=== PATIENT | female | born 1965 | race Caucasian/White ===

== ENCOUNTER → 2016-09-01 | Outpatient (REF) | payer BC ==
[2016-09-01 12:05] LABS: ALBUMIN 3.4 GM/DL (3.2-5.2); ALBUMIN/GLOBULIN RATIO 1.06 (1.00-1.93); ALKALINE PHOSPHATASE 129 U/L (45-117); ALT/SGPT 27 U/L (12-78); AMYLASE 51 U/L (25-115); ANION GAP 6 MEQ/L (8-16); AST/SGOT 18 U/L (15-37); BILIRUBIN,TOTAL 0.5 MG/DL (0.2-1.0); BLOOD UREA NITROGEN 16 MG/DL (7-18); CALCIUM LEVEL 8.5 MG/DL (8.5-10.1); CARBON DIOXIDE LEVEL 31 MEQ/L (21-32); CHLORIDE LEVEL 104 MEQ/L (98-107); CREATININE FOR GFR 0.55 MG/DL (0.55-1.02); GLOMERULAR FILTRATION RATE > 60.0 (>51); GLUCOSE, FASTING 98 MG/DL (70-105); POTASSIUM SERUM 4.1 MEQ/L (3.5-5.1); SODIUM LEVEL 141 MEQ/L (136-145); TOTAL PROTEIN 6.6 GM/DL (6.4-8.2)
[2016-09-02 14:16] LABS: TISSUE TRANSGLUTAMINASE IgG <2 U/mL (0-5)
== END ==
LOC: M LAB REF 11:21
PROVIDERS: ATTEND Family Medicine
DX: R14.0 Abdominal distension (gaseous) (principal); R10.13 Epigastric pain; K59.00 Constipation, unspecified; R19.7 Diarrhea, unspecified

== ENCOUNTER → 2016-09-10 | Outpatient (REF) | payer BC ==
[2016-09-13 14:16] LABS: TOTAL ALK PHOS 120 IU/L (39-117)
== END ==
LOC: M LABDRAWC 11:18
PROVIDERS: ATTEND Family Medicine
DX: R53.83 Other fatigue (principal); R94.5 Abnormal results of liver function studies; E55.9 Vitamin D deficiency, unspecified

== ENCOUNTER → 2016-09-16 | Outpatient (CLI) | payer BC ==
--- NOTE | 2016-09-16 14:21 | REP ---
Clinical: Postmenopausal bleeding. Comparison: 09/18/2009. . Technique: Transabdominal pelvic ultrasound followed by transvaginal examination for better evaluation of the endometrium and adnexa with color Doppler evaluation of the ovaries. Findings: Bladder is unremarkable and measures 9.2 x 5.8 x 9.5 cm . Normal heterogeneous anteverted uterus measures 7.9 x 3.8 x 4.9 cm. The endometrial complex measures 5 mm thickness. 5 mm echogenic focus anterior to the endometrium is essentially unchanged compared to 2010 and relatively insignificant/nonspecific. Right ovary is not visualized. Left ovary measures 3.8 x 3.2 x 4.3 cm and includes 3.2 cm simple cyst which is relatively new when compared to 2010 No pelvic fluid or adnexal mass lesion. . Impression: 1. Heterogeneous anteverted uterus without significant abnormality. 2. 3.2 cm simple left ovarian cyst represents a relatively new finding when compared to 2010. Consider follow-up examination
== END ==
LOC: M WHC 11:29
PROVIDERS: ATTEND Nurse Practitioner Family
DX: N83.202 Unspecified ovarian cyst, left side (principal); N85.4 Malposition of uterus

== ENCOUNTER → 2016-09-17 | Outpatient (REF) | payer BC | LOC: M SFHCWAGY 13:53 | PROVIDERS: ATTEND Family Medicine | DX: N95.0 Postmenopausal bleeding (principal); D26.9 Other benign neoplasm of uterus, unspecified ==

== ENCOUNTER → 2016-10-21 | Outpatient (CLI) | payer BC ==
--- NOTE | 2016-10-22 08:36 | REP ---
Clinical: Follow-up left ovarian cyst. Comparison: 09/16/2016. . Technique: Transabdominal pelvic ultrasound followed by transvaginal examination for better evaluation of the endometrium and adnexa. Findings: Bladder is unremarkable and measures 9.0 x 7.5 x 5.2 cm . Normal anteverted uterus measures 8.1 x 3.4 x 5.1 cm. The endometrial complex measures 4.5 mm thickness. No discrete uterine or endometrial abnormalities are appreciated. Incidental subcentimeter Nabothian cysts noted. Right ovary not visualized. Left ovary measures 3.6 x 1.9 x 3.0 cm with 2.3 x 1.8 x 2.4 cm simple cyst decreased in size from prior examination. No pelvic fluid or adnexal mass lesion. Impression: 1. Normal uterus. Nabothian cysts noted. 2. Right ovary not visualized. Left ovary contains 2.4 cm simple cyst mildly decreased from prior examination. Signed by Dale West MD 10/22/2016 08:28 A
== END ==
LOC: M WHC 08:32
PROVIDERS: ATTEND Nurse Practitioner Family
DX: N88.8 Other specified noninflammatory disorders of cervix uteri (principal); N83.291 Other ovarian cyst, right side

== ENCOUNTER → 2016-10-29 | Outpatient (REF) | payer BC ==
[~2016-10-29] MED LIST: OMEP10CASR PO
== END ==
LOC: M SFHCWAGY 14:03
PROVIDERS: ATTEND Family Medicine
DX: Z12.4 Encounter for screening for malignant neoplasm of cervix (principal)

== ENCOUNTER → 2016-10-29 | Outpatient (CLI) | payer BC ==
--- NOTE | 2016-10-29 16:41 | REPMRS ---
Patient History The patient states she had a clinical breast exam in Patient is postmenopausal and had first child at age 34. Family history of ovarian cancer in maternal aunt at age 50 or over. Digital Woman Screen Mammo: October 29, 2016 - Exam #: [id number] Bilateral CC and MLO view(s) were taken. Technologist: Mell Crowe, Technologist Prior study comparison: July 11, 2015, digital woman screen mammo performed at [facility]. July 03, 2014, digital woman screen mammo performed at [facility]. FINDINGS: There are scattered fibroglandular densities. There is a moderate amount of residual fibroglandular tissue which is fairly symmetric. There is no interval development of dominant mass, architectural distortion, or clustered microcalcification typical of malignancy. There has been no change in the appearance of the mammogram from the prior studies. ASSESSMENT: BI-RADS/ACR category 1 mammogram. Negative. Recommendation Routine screening mammogram of both breasts in 1 year (for women over age 40). This mammogram was interpreted with the aid of an FDA-approved computer-aided dectection system. Electronically Signed By: Vinicio Trinidad MD 10/29/16 [id number]
== END ==
LOC: M WHC 14:02
PROVIDERS: ATTEND Family Medicine
DX: Z12.31 Encounter for screening mammogram for malignant neoplasm of breast (principal)

== ENCOUNTER → 2016-12-16 | Outpatient (REF) | payer BC | LOC: M LABDRAWC 12:36 | PROVIDERS: ATTEND Physician Assistant | DX: Z02.0 Encounter for examination for admission to educational institution (principal) ==

== ENCOUNTER → 2017-02-02 | Outpatient (CLI) | payer BC ==
[~2017-02-02] VITALS: Ht 165.1 cm; Wt 89.8 kg
[~2017-02-02] MED LIST changes: +LIDOCAINE 2% INJ 100 MG/5 ML SDV (FOR ANES.) As Ordered ONE; +NS 1,000 ML IV ONE; +PROPOFOL 200 MG/20 ML VIAL As Ordered ONE
--- NOTE | 2017-02-02 11:14 | ROOR ---
Patient Name: Merissa Hernandez Procedure Date: 02/02/2017 10:57 AM Date of : 1965 Age: 51 Room: [facility] Gender: Female Note Status: Finalized Procedure: Upper Endoscopy + Biopsies Indications: Heartburn Providers: Kyle Morris MD Referring MD: Heidi LEVY DO Requesting Provider: Medicines: Monitored Anesthesia Care Complications: No immediate complications. Procedure: Pre-Anesthesia Assessment: - The heart rate, respiratory rate, oxygen saturations, blood pressure, adequacy of pulmonary ventilation, and response to care were monitored throughout the procedure. The Endoscope was introduced through the mouth, and advanced to the second part of duodenum. The upper GI endoscopy was accomplished without difficulty. The patient tolerated the procedure well. Findings: The Z-line was regular and was found 33 cm from the incisors. Multiple biopsies were obtained with cold forceps for evaluation to rule out Clark's Esophagus randomly at the gastroesophageal junction. Non-severe esophagitis with no bleeding was found 33 cm from the incisors. A medium-sized hiatal hernia was present. No other significant abnormalities were identified in a careful examination of the stomach. The exam of the duodenum was otherwise normal. Impression: - Z-line regular, 33 cm from the incisors. - Non-severe reflux esophagitis. - Medium-sized hiatal hernia. - Multiple biopsies were obtained at the gastroesophageal junction. - The examination was otherwise normal. Recommendation: - Patient has a contact number available for emergencies. The signs and symptoms of potential delayed complications were discussed with the patient. Return to normal activities tomorrow. Written discharge instructions were provided to the patient. - High fiber diet. - Discharge patient to home. - Continue present medications. - Await pathology results. - Check Portal Online for Path Results.([email or web address]) - Telephone GI clinic for pathology results in 1 week. - Return to referring physician. - The findings and recommendations were discussed with the patient's family. Kyle Morris MD Kyle Morris MD 02/02/2017 11:13:58 AM This report has been signed electronically. Number of Addenda: 0 Note Initiated On: 02/02/2017 10:57 AM Estimated Blood Loss: Estimated blood loss: none.
--- NOTE | 2017-02-02 11:28 | ROOR ---
Patient Name: Merissa Hernandez Procedure Date: 02/02/2017 10:59 AM Date of : 1965 Age: 51 Room: [facility] Gender: Female Note Status: Finalized Procedure: Total Colonoscopy to cecum + Biopsy Polypectomy Indications: Screening for colorectal malignant neoplasm Providers: Kyle Morris MD Referring MD: Heidi LEVY DO Requesting Provider: Medicines: Monitored Anesthesia Care Complications: No immediate complications. Procedure: Pre-Anesthesia Assessment: - The heart rate, respiratory rate, oxygen saturations, blood pressure, adequacy of pulmonary ventilation, and response to care were monitored throughout the procedure. The Colonoscope was introduced through the anus and advanced to the cecum, identified by appendiceal orifice and ileocecal valve. The colonoscopy was performed without difficulty. The patient tolerated the procedure well. The quality of the bowel preparation was excellent. Findings: The perianal and digital rectal examinations were normal. Non-bleeding internal hemorrhoids were found during retroflexion. The hemorrhoids were small and Grade I (internal hemorrhoids that do not prolapse). A small polyp was found in the cecum. The polyp was sessile. The polyp was removed with a jumbo cold forceps. Resection and retrieval were complete. Scattered small-mouthed diverticula were found in the recto-sigmoid colon, sigmoid colon and descending colon. The exam was otherwise without abnormality on direct and retroflexion views. Impression: - Non-bleeding internal hemorrhoids. - One small polyp in the cecum, removed with a jumbo cold forceps. Resected and retrieved. - Diverticulosis in the recto-sigmoid colon, in the sigmoid colon and in the descending colon. - The examination was otherwise normal on direct and retroflexion views. - The exam was otherwise normal to the cecum. Recommendation: - Patient has a contact number available for emergencies. The signs and symptoms of potential delayed complications were discussed with the patient. Return to normal activities tomorrow. Written discharge instructions were provided to the patient. - High fiber diet. - Discharge patient to home. - Continue present medications. - Await pathology results. - Telephone GI clinic for pathology results in 1 week. - Repeat colonoscopy at appointment to be scheduled for surveillance based on pathology results. - Return to referring physician. - Check Portal Online for Path Results.([email or web address] - The findings and recommendations were discussed with the patient's family. Kyle Morris MD Kyle Morris MD 02/02/2017 11:28:22 AM This report has been signed electronically. Number of Addenda: 0 Note Initiated On: 02/02/2017 10:59 AM Estimated Blood Loss: Estimated blood loss: none.
[2017-02-02 11:45] VITALS: BP 133/79
== END ==
LOC: M OPP 09:50
PROVIDERS: ATTEND Internal Medicine Gastroenterology
DX: Z12.11 Encounter for screening for malignant neoplasm of colon (principal); D12.0 Benign neoplasm of cecum; K57.30 Diverticulosis of large intestine without perforation or abscess without bleeding; K64.0 First degree hemorrhoids; R12 Heartburn; K21.0 Gastro-esophageal reflux disease with esophagitis; K44.9 Diaphragmatic hernia without obstruction or gangrene; E78.5 Hyperlipidemia, unspecified; R23.3 Spontaneous ecchymoses; F32.9 Major depressive disorder, single episode, unspecified; Z80.9 Family history of malignant neoplasm, unspecified; Z78.0 Asymptomatic menopausal state; L80 Vitiligo; Z79.899 Other long term (current) drug therapy

== ENCOUNTER → 2017-09-01 | Outpatient (REF) | payer BC ==
[2017-09-01 11:32] LABS: HEMATOCRIT 40.4 % (36.0-47.0); HEMOGLOBIN 13.3 g/dl (12.0-15.5); MEAN CORPUSCULAR HEMOGLOBIN 30.6 pg (27.0-33.0); MEAN CORPUSCULAR HGB CONC 32.9 g/dl (32.0-36.5); MEAN CORPUSCULAR VOLUME 92.9 fl (80.0-96.0); PLATELET COUNT, AUTOMATED 362 10^3/uL (150-450); RED BLOOD COUNT 4.35 10^6/uL (4.00-5.40); RED CELL DISTRIBUTION WIDTH 12.6 % (11.5-14.5); WHITE BLOOD COUNT 4.7 10^3/uL (4.0-10.0)
[2017-09-01 11:59] LABS: TOTAL 25(OH) VITAMIN D 24.6 NG/ML (30.0-100.0)
[2017-09-01 12:08] LABS: ALBUMIN 3.6 GM/DL (3.2-5.2); ALBUMIN/GLOBULIN RATIO 1.06 (1.00-1.93); ALKALINE PHOSPHATASE 111 U/L (45-117); ALT/SGPT 23 U/L (12-78); ANION GAP 4 MEQ/L (8-16); AST/SGOT 15 U/L (7-37); BILIRUBIN,TOTAL 0.4 MG/DL (0.2-1.0); BLOOD UREA NITROGEN 14 MG/DL (7-18); CALCIUM LEVEL 9.4 MG/DL (8.5-10.1); CARBON DIOXIDE LEVEL 32 MEQ/L (21-32); CHLORIDE LEVEL 108 MEQ/L (98-107); CHOLESTEROL LEVEL 209 MG/DL (<200); CHOLESTEROL RISK RATIO 3.166 (<5); CREATININE FOR GFR 0.57 MG/DL (0.55-1.30); FREE THYROXINE INDEX 3.6 % (1.3-4.8); GLOMERULAR FILTRATION RATE > 60.0 (>51); GLUCOSE, FASTING 97 MG/DL (70-100); HDL CHOLESTEROL 66 MG/DL (>40); LDL CHOLESTEROL 129.8 MG/DL (<100); NON-HDL-C 143 MG/DL; POTASSIUM SERUM 4.2 MEQ/L (3.5-5.1); SODIUM LEVEL 144 MEQ/L (136-145); T UPTAKE 33 % (30-39); THYROID STIMULATING HORMONE 0.804 uIU/ML (0.358-3.740); THYROXINE (T4) 10.9 UG/DL (4.5-12.0); TRIGLYCERIDES LEVEL 66 MG/DL (<150)
== END ==
LOC: M SFHCCLAY 07:44
DX: K21.9 Gastro-esophageal reflux disease without esophagitis (principal); F32.9 Major depressive disorder, single episode, unspecified; Z13.6 Encounter for screening for cardiovascular disorders; Z13.21 Encounter for screening for nutritional disorder
CPT/HCPCS: 84443

== ENCOUNTER → 2018-02-27 | Outpatient (REF) | payer BC ==
[2018-02-27 12:13] LABS: CHOLESTEROL LEVEL 229 MG/DL (<200); CHOLESTEROL RISK RATIO 3.881 (<5); HDL CHOLESTEROL 59 MG/DL (>40); LDL CHOLESTEROL 141 MG/DL (<100); NON-HDL-C 170 MG/DL; TOTAL 25(OH) VITAMIN D 24.6 NG/ML (30.0-100.0); TRIGLYCERIDES LEVEL 144 MG/DL (<150)
== END ==
LOC: M SFHCCLAY 07:35
DX: E78.5 Hyperlipidemia, unspecified (principal); E55.9 Vitamin D deficiency, unspecified
CPT/HCPCS: 82306

== ENCOUNTER → 2018-04-26 | Outpatient (CLI) | payer BC ==
[~2018-04-26] MED LIST changes: -LIDOCAINE 2% INJ 100 MG/5 ML SDV (FOR ANES.) As Ordered ONE; -NS 1,000 ML IV ONE; -PROPOFOL 200 MG/20 ML VIAL As Ordered ONE
--- NOTE | 2018-04-26 18:22 | REP ---
Clinical: Acute cough . Comparison: 01/02/2009 . Technique: PA and lateral. Findings: The mediastinum and cardiac silhouette are normal. The lung godoy are clear and without acute consolidation, effusion, or pneumothorax. The skeletal structures are intact and normal. Impression: 1. No acute cardiopulmonary process. Electronically Signed by Dale West MD 04/26/2018 06:13 P
[2018-04-26 19:35] LABS: HEMATOCRIT 41.9 % (36.0-47.0); HEMOGLOBIN 13.9 g/dl (12.0-15.5); MEAN CORPUSCULAR HEMOGLOBIN 30.5 pg (27.0-33.0); MEAN CORPUSCULAR HGB CONC 33.2 g/dl (32.0-36.5); MEAN CORPUSCULAR VOLUME 91.9 fl (80.0-96.0); RED BLOOD COUNT 4.56 10^6/uL (4.00-5.40); WHITE BLOOD COUNT 6.8 10^3/uL (4.0-10.0)
[2018-04-26 19:36] LABS: BASO % 0.4 % (0.0-1.0); EOS # 0.2 10^3/uL (0.0-0.50); EOS % 3.5 % (0.0-3.0); LYMPH # 2.1 10^3/uL (1.5-4.5); LYMPH % 30.3 % (24.0-44.0); MONO # 0.6 10^3/uL (0.0-0.8); MONO % 9.1 % (0.0-5.0); NEUTROPHILS # 3.8 10^3/uL (1.8-7.7); NEUTROPHILS % 56.4 % (36.0-66.0); PLATELET COUNT, AUTOMATED 390 10^3/uL (150-450)
[2018-04-26 19:47] LABS: ALBUMIN 3.7 GM/DL (3.2-5.2); ALT/SGPT 21 U/L (12-78); BILIRUBIN,TOTAL 0.4 MG/DL (0.2-1.0); BLOOD UREA NITROGEN 14 MG/DL (7-18); CALCIUM LEVEL 8.9 MG/DL (8.5-10.1); CARBON DIOXIDE LEVEL 31 MEQ/L (21-32); CHLORIDE LEVEL 103 MEQ/L (98-107); CREATININE FOR GFR 0.79 MG/DL (0.55-1.30); FREE T4 0.94 NG/DL (0.76-1.46); GLOMERULAR FILTRATION RATE > 60.0 (>51); GLUCOSE, FASTING 102 MG/DL (70-100); POTASSIUM SERUM 3.7 MEQ/L (3.5-5.1); SODIUM LEVEL 142 MEQ/L (136-145); THYROID STIMULATING HORMONE 0.711 uIU/ML (0.358-3.740); TOTAL PROTEIN 7.2 GM/DL (6.4-8.2)
== END ==
LOC: M WUC 18:01
PROVIDERS: ATTEND Physician Assistant
DX: R19.7 Diarrhea, unspecified (principal); R05 Cough

== ENCOUNTER → 2018-08-14 | Outpatient (REF) | payer BC | LOC: M LAB REF 09:40 | PROVIDERS: ATTEND Physician Assistant | DX: N39.0 Urinary tract infection, site not specified (principal) ==

== ENCOUNTER → 2019-04-06 | Outpatient (REF) | payer BC | LOC: M LAB REF 18:25 | PROVIDERS: ATTEND Family Medicine | DX: Z12.4 Encounter for screening for malignant neoplasm of cervix (principal) ==

== ENCOUNTER → 2019-04-06 | Outpatient (CLI) | payer BC ==
--- NOTE | 2019-04-06 14:44 | REPMRS ---
Patient History The patient states she has not had a clinical breast exam in over a year. Family history of ovarian cancer at age 50 or over in maternal aunt. 3D TOMOSYNTHESIS WAS PERFORMED. The Himanshu Noguera lifetime risk for breast cancer is 10.0%. Digital Woman Screen Mammo: April 06, 2019 - Exam #: [id number] Bilateral CC and MLO view(s) were taken. Technologist: Liset Nelson, Technologist Prior study comparison: October 29, 2016, digital woman screen mammo performed at [facility]. July 11, 2015, digital woman screen mammo performed at [facility]. FINDINGS: The breast tissue is heterogeneously dense. This may lower the sensitivity of mammography. There has been no change in the appearance of the mammogram from the prior studies. There is a moderate amount of residual fibroglandular tissue which is fairly symmetric. There is no interval development of dominant mass, areas of architectural distortion, or clustered microcalcification typical of malignancy. Assessment: BI-RADS/ACR category 1 mammogram. Negative Mammogram. Recommendation Routine screening mammogram in 1 year (for women over age 40). This mammogram was interpreted with the aid of an FDA-approved computer-aided dectection system. Electronically Signed By: Alvaro Max MD 04/06/19 0556
== END ==
LOC: M WHC 13:12
PROVIDERS: ATTEND Family Medicine
DX: Z12.31 Encounter for screening mammogram for malignant neoplasm of breast (principal)

== ENCOUNTER → 2019-04-06 | Outpatient (REF) | payer BC | LOC: M PLALAB 13:50 | PROVIDERS: ATTEND Family Medicine | DX: Z53.9 Procedure and treatment not carried out, unspecified reason (principal) ==

== ENCOUNTER → 2019-04-06 | Outpatient (CLI) | payer BC | LOC: M PLALAB 13:58 | PROVIDERS: ATTEND Family Medicine | DX: Z13.71 Encounter for nonprocreative screening for genetic disease carrier status (principal) ==

== ENCOUNTER → 2019-10-29 | Outpatient (CLI) | payer BC ==
[~2019-10-29] MED LIST changes: +PROHANCE 279.3MG/ML 15ML VIAL As Ordered ONE; +PROHANCE 279.3MG/ML 5ML VIAL As Ordered ONE
--- NOTE | 2019-10-29 16:04 | REP ---
BILATERAL BREAST MRI STUDY WITHOUT AND WITH IV GADOLINIUM: HISTORY: High-risk breast cancer screening. Positive genetic testing. Comparison mammography, April 06, 2019. TECHNIQUE: Three Lisa MRI imaging was performed with a dedicated breast coil. Axial, coronal, and sagittal T1 and T2-weighted scans were obtained with and without fat saturation in the usual fashion. The study includes dynamically acquired post gadolinium enhanced imaging subtraction imaging. Maximal intensity projection and multiplanar re-formation imaging is included as well. The study was interpreted with the aid of [employer], an FDA approved computer-aided detection (CAD) software program, on a dedicated breast MRI work station. The gadolinium enhancement dose is 16 mL of intravenous ProHance. FINDINGS: There is no evidence of axillary lymphadenopathy or significant breast cystic change on either side. High-resolution pre- and postcontrast enhanced T1- and T2-weighted scans of both breast show no suspicious morphologic abnormality on either side. Dynamically acquired sequential post contrast images show no suspicious area of enhancement and/or washout in either breast to suggest malignancy. Subtraction images are unremarkable. IMPRESSION: BI-RADS category 1 negative findings. Patient's whose estimated lifetime breast cancer risk assessment is greater than 20% merit annual screening breast MRI scanning in addition to annual screening mammography. Electronically Signed by Rodolfo Trinidad MD 10/29/2019 05:07 P
== END ==
LOC: M RAD 12:47
PROVIDERS: ATTEND Nurse Practitioner Family
DX: Z91.89 Other specified personal risk factors, not elsewhere classified (principal); Z15.01 Genetic susceptibility to malignant neoplasm of breast
CPT/HCPCS: A9576; C8908

== ENCOUNTER → 2019-11-15 | Outpatient (REF) | payer BC ==
[~2019-11-15] MED LIST changes: -PROHANCE 279.3MG/ML 15ML VIAL As Ordered ONE; -PROHANCE 279.3MG/ML 5ML VIAL As Ordered ONE
== END ==
LOC: M SFHCCLAY 15:45
PROVIDERS: ATTEND Nurse Practitioner Family
DX: Z20.828 Contact with and (suspected) exposure to other viral communicable diseases (principal)

== ENCOUNTER → 2020-12-15 | Outpatient (REF) | payer OTHER ==
[2020-12-15 11:38] LABS: BASO % 0.6 % (0.0-1.0); EOS # 0.2 10^3/uL (0.0-0.5); EOS % 2.9 % (0.0-3.0); HEMATOCRIT 41.1 % (36.0-47.0); HEMOGLOBIN 13.2 g/dl (12.0-15.5); LYMPH # 1.8 10^3/uL (1.5-5.0); LYMPH % 27.9 % (24.0-44.0); MEAN CORPUSCULAR HEMOGLOBIN 30.3 pg (27.0-33.0); MEAN CORPUSCULAR HGB CONC 32.1 g/dl (32.0-36.5); MEAN CORPUSCULAR VOLUME 94.5 fl (80.0-96.0); MONO # 0.5 10^3/uL (0.0-0.8); MONO % 8.1 % (2.0-8.0); NEUTROPHILS # 3.9 10^3/uL (1.5-8.5); PLATELET COUNT, AUTOMATED 342 10^3/uL (150-450); RED BLOOD COUNT 4.35 10^6/uL (4.00-5.40); WHITE BLOOD COUNT 6.5 10^3/uL (4.0-10.0)
[2020-12-15 12:06] LABS: ERYTHROCYTE SEDIMENTATION RATE 21 mm/hr (0-30)
[2020-12-15 12:18] LABS: ALBUMIN 3.7 GM/DL (3.2-5.2); ALT/SGPT 25 U/L (12-78); BILIRUBIN,TOTAL 0.5 MG/DL (0.2-1.0); BLOOD UREA NITROGEN 15 MG/DL (7-18); C REACTIVE PROTEIN QUANTITATIV 0.69 MG/DL (0.00-0.30); CALCIUM LEVEL 9.3 MG/DL (8.5-10.1); CARBON DIOXIDE LEVEL 31 MEQ/L (21-32); CHLORIDE LEVEL 105 MEQ/L (98-107); CHOLESTEROL LEVEL 254 MG/DL (<200); CHOLESTEROL RISK RATIO 3.791 (<5); CREATININE FOR GFR 0.56 MG/DL (0.55-1.30); FREE T4 0.88 NG/DL (0.76-1.46); GLOMERULAR FILTRATION RATE > 60.0 (>51); GLUCOSE, FASTING 98 MG/DL (70-100); HDL CHOLESTEROL 67 MG/DL (>40); LDL CHOLESTEROL 163 MG/DL (<100); NON-HDL-C 187 MG/DL; POTASSIUM SERUM 3.9 MEQ/L (3.5-5.1); RHEUMATOID FACTOR QUANT < 10.0 IU/ML (<15.0); SODIUM LEVEL 141 MEQ/L (136-145); THYROID STIMULATING HORMONE 0.989 uIU/ML (0.358-3.740); TOTAL PROTEIN 6.9 GM/DL (6.4-8.2); TRIGLYCERIDES LEVEL 120 MG/DL (<150)
[2020-12-15 12:19] LABS: TOTAL 25(OH) VITAMIN D 19.2 NG/ML (30.0-100.0)
[2020-12-15 12:40] LABS: HEMOGLOBIN A1c 5.6 %
[2020-12-16 20:09] LABS: ANA (HEP2) Negative (.)
== END ==
LOC: M SFHCCLAY 08:36
PROVIDERS: ATTEND Nurse Practitioner Family
DX: K21.9 Gastro-esophageal reflux disease without esophagitis (principal); E55.9 Vitamin D deficiency, unspecified; E66.9 Obesity, unspecified; Z68.33 Body mass index [BMI] 33.0-33.9, adult; M25.50 Pain in unspecified joint

== ENCOUNTER → 2021-07-09 | Outpatient (CLI) | payer OTHER ==
[~2021-07-09] MED LIST changes: +ALLE24TA7 PO
== END ==
LOC: M LABSMTC 10:39
PROVIDERS: ATTEND Anesthesiology
DX: Z11.52 Encounter for screening for COVID-19 (principal)

== ENCOUNTER 2021-07-14 09:12 | Day surgery (SDC) | payer OTHER ==
[~2021-07-14] VITALS: Ht 165.1 cm; Wt 89.8 kg
[~2021-07-14 09:12] MED LIST changes: +LIDOCAINE 2% 100MG/5ML SDV (FOR ANES.) As Ordered ONE; +NS 1,000 ML IV ONE; +propofoL 500 MG/50 ML VIAL As Ordered ONE
[2021-07-14 11:00] VITALS: BP 143/78
== END 2021-07-14 11:20 | disposition home or self-care (01) ==
LOC: M OPP 09:12
PROVIDERS: ATTEND Internal Medicine Gastroenterology
DX: K63.89 Other specified diseases of intestine (principal); K64.8 Other hemorrhoids; K57.30 Diverticulosis of large intestine without perforation or abscess without bleeding; Z86.010 Personal history of colon polyps; Z09 Encounter for follow-up examination after completed treatment for conditions other than malignant neoplasm

== ENCOUNTER → 2021-08-21 | Outpatient (REF) | payer OTHER ==
[~2021-08-21] MED LIST changes: -LIDOCAINE 2% 100MG/5ML SDV (FOR ANES.) As Ordered ONE; -NS 1,000 ML IV ONE; -propofoL 500 MG/50 ML VIAL As Ordered ONE
[2021-08-21 11:55] LABS: ALBUMIN 3.5 GM/DL (3.2-5.2); ALT/SGPT 22 U/L (12-78); BILIRUBIN,TOTAL 0.5 MG/DL (0.2-1.0); BLOOD UREA NITROGEN 16 MG/DL (7-18); CALCIUM LEVEL 9.1 MG/DL (8.5-10.1); CARBON DIOXIDE LEVEL 34 MEQ/L (21-32); CHLORIDE LEVEL 106 MEQ/L (98-107); CREATININE FOR GFR 0.65 MG/DL (0.55-1.30); GLOMERULAR FILTRATION RATE > 60.0 (>51); GLUCOSE, FASTING 92 MG/DL (70-100); SODIUM LEVEL 141 MEQ/L (136-145); TOTAL 25(OH) VITAMIN D 36.3 NG/ML (30.0-100.0); TOTAL PROTEIN 6.7 GM/DL (6.4-8.2)
== END ==
LOC: M SFHCCLAY 07:53
PROVIDERS: ATTEND Nurse Practitioner Family
DX: E55.9 Vitamin D deficiency, unspecified (principal)

== ENCOUNTER → 2021-09-10 | Outpatient (CLI) | payer OTHER | LOC: M SOG 07:55 | PROVIDERS: ATTEND Physician Assistant | DX: M25.521 Pain in right elbow (principal) ==

== ENCOUNTER → 2022-01-15 | Outpatient (REF) | payer OTHER ==
[2022-01-15 12:26] LABS: ALBUMIN 3.5 GM/DL (3.2-5.2); ALT/SGPT 22 U/L (12-78); BILIRUBIN,TOTAL 0.5 MG/DL (0.2-1.0); BLOOD UREA NITROGEN 16 MG/DL (7-18); CALCIUM LEVEL 9.1 MG/DL (8.5-10.1); CARBON DIOXIDE LEVEL 31 MEQ/L (21-32); CHLORIDE LEVEL 104 MEQ/L (98-107); CREATININE FOR GFR 0.65 MG/DL (0.55-1.30); GLOMERULAR FILTRATION RATE > 60.0 (>51); GLUCOSE, FASTING 94 MG/DL (70-100); POTASSIUM SERUM 4.3 MEQ/L (3.5-5.1); SODIUM LEVEL 137 MEQ/L (136-145); TOTAL PROTEIN 6.9 GM/DL (6.4-8.2)
== END ==
LOC: M SFHCCLAY 07:54
PROVIDERS: ATTEND Nurse Practitioner Family
DX: R79.81 Abnormal blood-gas level (principal)

== ENCOUNTER → 2022-03-03 | Outpatient (REF) | payer OTHER | LOC: M LAB REF 11:58 | PROVIDERS: ATTEND Physician Assistant | DX: B34.9 Viral infection, unspecified (principal) ==

== ENCOUNTER → 2022-04-19 | Outpatient (CLI) | payer OTHER ==
[2022-04-19 14:41] LABS: BASO % 0.6 % (0.0-1.0); EOS # 0.2 10^3/uL (0.0-0.5); EOS % 3.1 % (0.0-3.0); HEMOGLOBIN 12.2 g/dl (12.0-15.5); LYMPH # 1.4 10^3/uL (1.5-5.0); LYMPH % 22.1 % (24.0-44.0); MEAN CORPUSCULAR HEMOGLOBIN 29.7 pg (27.0-33.0); MEAN CORPUSCULAR HGB CONC 31.3 g/dl (32.0-36.5); MEAN CORPUSCULAR VOLUME 94.9 fl (80.0-96.0); MONO # 0.6 10^3/uL (0.0-0.8); MONO % 8.9 % (2.0-8.0); NEUTROPHILS # 4.2 10^3/uL (1.5-8.5); PLATELET COUNT, AUTOMATED 348 10^3/uL (150-450); RED BLOOD COUNT 4.11 10^6/uL (4.00-5.40); WHITE BLOOD COUNT 6.5 10^3/uL (4.0-10.0)
[2022-04-19 15:03] LABS: FREE T4 0.88 NG/DL (0.89-1.76); THYROID STIMULATING HORMONE 1.055 uIU/ML (0.55-4.78)
[2022-04-19 15:05] LABS: HEMOGLOBIN A1c 5.2 % (4.0-6.0)
== END ==
LOC: M PLALAB 11:50
PROVIDERS: ATTEND Obstetrics & Gynecology
DX: Z12.4 Encounter for screening for malignant neoplasm of cervix (principal)

== ENCOUNTER → 2022-04-19 | Outpatient (CLI) | payer OTHER | LOC: M WHC 09:32 | PROVIDERS: ATTEND Obstetrics & Gynecology | DX: Z12.31 Encounter for screening mammogram for malignant neoplasm of breast (principal) ==

== ENCOUNTER → 2022-07-05 | Outpatient (REF) | payer OTHER ==
[2022-07-05 11:46] LABS: FREE T4 0.94 NG/DL (0.89-1.76); THYROID STIMULATING HORMONE 0.547 uIU/ML (0.55-4.78)
== END ==
LOC: M SFHCCLAY 07:53
PROVIDERS: ATTEND Nurse Practitioner Family
DX: E03.8 Other specified hypothyroidism (principal)

== ENCOUNTER → 2022-07-07 | Outpatient (REF) | payer OTHER ==
[2022-07-07 18:04] LABS: C REACTIVE PROTEIN QUANTITATIV 0.8 MG/DL (<1.0)
[2022-07-07 18:05] LABS: RHEUMATOID FACTOR QUANT 5.7 IU/ML (<14)
[2022-07-07 18:09] LABS: FREE T3 3.4 PG/ML (2.3-4.2)
[2022-07-07 18:11] LABS: THYROID PEROXIDASE ANTIBODY < 28.0 U/ML (<60.0)
[2022-07-09 23:08] LABS: ANA (HEP2) Negative (.); CYCLIC CITRULLINATED PEPTIDE 9 units (0-19); IgG P18 AB Absent (.); IgG P23 AB Absent (.); IgG P28 AB Absent (.); IgG P30 AB Absent (.); IgG P39 AB Absent (.); IgG P41 AB Present (.); IgG P45 AB Absent (.); IgG P66 AB Absent (.); IgG P93 AB Absent (.); IgM P23 AB Absent (.); IgM P39 AB Absent (.); IgM P41 AB Absent (.); LYME IgG WB INTERPRETATION Negative (.); LYME IgM WB INTERPRETATION Negative (.); SSA SJOGRENS A <0.2 AI (0.0-0.9); SSB SJOGRENS B <0.2 AI (0.0-0.9)
== END ==
LOC: M SFHCCLAY 09:33
PROVIDERS: ATTEND Nurse Practitioner Family
DX: E03.8 Other specified hypothyroidism (principal); M25.50 Pain in unspecified joint

== ENCOUNTER → 2022-09-02 | Outpatient (CLI) | payer OTHER | LOC: M WHC 14:23 | PROVIDERS: ATTEND Obstetrics & Gynecology | DX: N88.8 Other specified noninflammatory disorders of cervix uteri (principal) ==

== ENCOUNTER → 2022-09-02 | Outpatient (CLI) | payer OTHER | LOC: M WHC 14:26 | PROVIDERS: ATTEND Nurse Practitioner Family | DX: E03.8 Other specified hypothyroidism (principal) ==

== ENCOUNTER → 2023-03-08 | Outpatient (REF) | payer OTHER ==
[2023-03-08 12:00] LABS: BASO % 0.5 % (0.0-1.0); EOS # 0.1 10^3/uL (0.0-0.5); EOS % 2.5 % (0.0-3.0); HEMATOCRIT 40.6 % (36.0-47.0); HEMOGLOBIN 13.4 g/dl (12.0-15.5); LYMPH # 1.4 10^3/uL (1.5-5.0); MEAN CORPUSCULAR HEMOGLOBIN 30.5 pg (27.0-33.0); MEAN CORPUSCULAR VOLUME 92.5 fl (80.0-96.0); MONO # 0.5 10^3/uL (0.0-0.8); MONO % 8.1 % (2.0-8.0); NEUTROPHILS # 3.7 10^3/uL (1.5-8.5); NEUTROPHILS % 64.5 % (36.0-66.0); PLATELET COUNT, AUTOMATED 320 10^3/uL (150-450); RED BLOOD COUNT 4.39 10^6/uL (4.00-5.40); WHITE BLOOD COUNT 5.7 10^3/uL (4.0-10.0)
[2023-03-08 12:36] LABS: ALBUMIN 3.6 G/DL (3.2-5.2); ALKALINE PHOSPHATASE 121 U/L (46-116); ALT/SGPT 16 U/L (7.0-40); AST/SGOT 16 U/L (<34); BILIRUBIN,TOTAL 0.5 MG/DL (0.3-1.2); BLOOD UREA NITROGEN 22 MG/DL (9-23); CALCIUM LEVEL 8.7 MG/DL (8.5-10.1); CARBON DIOXIDE LEVEL 28 MMOL/L (20-31); CHLORIDE LEVEL 103 MMOL/L (98-107); CHOLESTEROL LEVEL 235 MG/DL (<200); CHOLESTEROL RISK RATIO 4.05 (<5); FREE T4 0.85 NG/DL (0.89-1.76); GLOMERULAR FILTRATION RATE > 60.0 (>51); GLUCOSE, FASTING 109 MG/DL (60-100); HDL CHOLESTEROL 57.9 MG/DL (>40); LDL CHOLESTEROL 158.5 MG/DL (<100); NON-HDL-C 177.1 MG/DL; SODIUM LEVEL 140 MMOL/L (136-145); THYROID STIMULATING HORMONE 0.904 uIU/ML (0.55-4.78); TOTAL PROTEIN 6.6 G/DL (5.7-8.2); TRIGLYCERIDES LEVEL 93 MG/DL (<150)
[2023-03-08 12:57] LABS: HEMOGLOBIN A1c 5.4 % (4.0-6.0)
== END ==
LOC: M SFHCCLAY 07:37
PROVIDERS: ATTEND Nurse Practitioner Family
DX: R53.83 Other fatigue (principal); E03.8 Other specified hypothyroidism; E55.9 Vitamin D deficiency, unspecified; E66.9 Obesity, unspecified; Z68.33 Body mass index [BMI] 33.0-33.9, adult; M25.50 Pain in unspecified joint

== ENCOUNTER → 2023-09-08 | Outpatient (CLI) | payer SELFPAY | LOC: M CLY 10:04 | PROVIDERS: ATTEND Nurse Practitioner Family | DX: M25.552 Pain in left hip (principal); M79.644 Pain in right finger(s) ==

== ENCOUNTER → 2023-11-25 | Outpatient (CLI) | payer SELFPAY | LOC: M WHC 13:51 | PROVIDERS: ATTEND Nurse Practitioner Family | DX: Z12.31 Encounter for screening mammogram for malignant neoplasm of breast (principal); R92.323 Mammographic fibroglandular density, bilateral breasts; N63.11 Unspecified lump in the right breast, upper outer quadrant ==

== ENCOUNTER → 2023-12-07 | Outpatient (CLI) | payer SELFPAY | LOC: M WHC 10:57 | PROVIDERS: ATTEND Nurse Practitioner Family | DX: R92.8 Other abnormal and inconclusive findings on diagnostic imaging of breast (principal) ==

== ENCOUNTER → 2023-12-13 | Outpatient (REF) | payer SELFPAY ==
[2023-12-13 12:07] LABS: FREE T4 1.07 NG/DL (0.89-1.76)
[2023-12-13 12:08] LABS: THYROID STIMULATING HORMONE 0.889 uIU/ML (0.55-4.78)
[2023-12-13 12:09] LABS: THYROGLOBULIN ANTIBODY < 15.0 U/ML (<60.0)
[2023-12-13 12:10] LABS: THYROID PEROXIDASE ANTIBODY < 28.0 U/ML (<60.0)
== END ==
LOC: M SFHCCLAY 08:27
PROVIDERS: ATTEND Nurse Practitioner Family
DX: R79.89 Other specified abnormal findings of blood chemistry (principal)

== ENCOUNTER → 2023-12-22 | Outpatient (CLI) | payer OTHER, SELFPAY ==
[2023-12-22 07:57] VITALS: TEMP 98.4
[2023-12-22 08:36] VITALS: BP 132/80; O2SAT 100
== END ==
LOC: M WHCPRO 07:31
PROVIDERS: ATTEND Nurse Practitioner Family
DX: R92.8 Other abnormal and inconclusive findings on diagnostic imaging of breast (principal); N63.13 Unspecified lump in the right breast, lower outer quadrant; C50.511 Malignant neoplasm of lower-outer quadrant of right female breast

== ENCOUNTER → 2024-03-02 | Outpatient (CLI) | payer MEDICAID ==
[2024-03-02 15:39] LABS: HEMATOCRIT 39.2 % (36.0-47.0); HEMOGLOBIN 12.5 g/dl (12.0-15.5); MEAN CORPUSCULAR HEMOGLOBIN 30.3 pg (27.0-33.0); MEAN CORPUSCULAR HGB CONC 31.9 g/dl (32.0-36.5); MEAN CORPUSCULAR VOLUME 94.9 fl (80.0-96.0); PLATELET COUNT, AUTOMATED 336 10^3/uL (150-450); RED BLOOD COUNT 4.13 10^6/uL (4.00-5.40)
[2024-03-02 16:03] LABS: ALBUMIN 3.5 G/DL (3.2-5.2); ALKALINE PHOSPHATASE 157 U/L (35-104); ALT/SGPT 44 U/L (7.0-40); AST/SGOT 19 U/L (<34); BILIRUBIN,TOTAL 0.3 MG/DL (0.3-1.2); BLOOD UREA NITROGEN 15 MG/DL (9-23); CALCIUM LEVEL 9.3 MG/DL (8.5-10.1); CARBON DIOXIDE LEVEL 30 MMOL/L (20-31); CHLORIDE LEVEL 106 MMOL/L (98-107); CREATININE FOR GFR 0.73 MG/DL (0.55-1.30); GLOMERULAR FILTRATION RATE > 60.0 (>51); GLUCOSE, FASTING 117 MG/DL (60-100); POTASSIUM SERUM 3.9 MMOL/L (3.5-5.1); SODIUM LEVEL 142 MMOL/L (136-145); TOTAL PROTEIN 6.6 G/DL (5.7-8.2)
[2024-03-02 16:05] LABS: RHEUMATOID FACTOR QUANT 8.4 IU/ML (<14)
== END ==
LOC: M PLALAB 14:13
DX: R07.81 Pleurodynia (principal)

== ENCOUNTER → 2024-04-06 | Outpatient (CLI) | payer MEDICAID ==
[~2024-04-06] MED LIST changes: +MELO15TA28 PO; +WELL100T2 PO
== END ==
LOC: M ONCR 07:57
PROVIDERS: ATTEND General Practice
DX: C50.411 Malignant neoplasm of upper-outer quadrant of right female breast (principal); Z98.890 Other specified postprocedural states; Z90.49 Acquired absence of other specified parts of digestive tract; Z79.1 Long term (current) use of non-steroidal anti-inflammatories (NSAID); Z79.899 Other long term (current) drug therapy

== ENCOUNTER 2024-04-23 08:02 | Outpatient (RCR) | payer MEDICAID | END 2024-05-01 | LOC: M ONCR 08:02 | PROVIDERS: ATTEND General Practice | DX: Z51.0 Encounter for antineoplastic radiation therapy (principal); C50.411 Malignant neoplasm of upper-outer quadrant of right female breast ==

== ENCOUNTER → 2024-06-01 | Outpatient (RCR) | payer MEDICAID ==
[~2024-06-01] MED LIST changes: +VALA1TAB5 PO
== END ==
LOC: M ONCR 05-09 08:37
PROVIDERS: ATTEND General Practice
DX: Z51.0 Encounter for antineoplastic radiation therapy (principal); C50.411 Malignant neoplasm of upper-outer quadrant of right female breast

== ENCOUNTER 2024-06-12 08:29 | Outpatient (RCR) | payer MEDICAID ==
[2024-06-12] MEDS ORDERED: PRED50TA PO (08:49)
== END 2024-06-29 ==
LOC: M ONCR 08:29
PROVIDERS: ATTEND General Practice
DX: Z51.0 Encounter for antineoplastic radiation therapy (principal); C50.411 Malignant neoplasm of upper-outer quadrant of right female breast

== ENCOUNTER → 2024-07-30 | Outpatient (CLI) | payer MEDICAID ==
[~2024-07-30] MED LIST changes: +PRED50TA PO
== END ==
LOC: M RAD 08:52
PROVIDERS: ATTEND Nurse Practitioner Family
DX: R79.89 Other specified abnormal findings of blood chemistry (principal); Z90.49 Acquired absence of other specified parts of digestive tract; K76.0 Fatty (change of) liver, not elsewhere classified

== ENCOUNTER → 2024-11-27 | Outpatient (REF) | payer MEDICAID ==
[~2024-11-27] MED LIST changes: -PRED50TA PO; +PRED50TA57 PO
[2024-11-27 12:28] LABS: BASO # 0.0 10^3/uL (0.0-0.2); BASO % 0.6 % (0.0-1.0); EOS # 0.1 10^3/uL (0.0-0.5); EOS % 2.7 % (0.0-3.0); LYMPH # 0.9 10^3/uL (1.5-5.0); LYMPH % 19.9 % (24.0-44.0); MONO # 0.5 10^3/uL (0.0-0.8); MONO % 9.9 % (2.0-8.0); NEUTROPHILS # 3.1 10^3/uL (1.5-8.5); NEUTROPHILS % 66.5 % (36.0-66.0); PLATELET COUNT, AUTOMATED 330 10^3/uL (150-450)
[2024-11-27 12:31] LABS: ALT/SGPT 19.0 U/L (7.0-40); AST/SGOT 22.0 U/L (<34); CALCIUM LEVEL 9.6 MG/DL (8.5-10.1); CARBON DIOXIDE LEVEL 30.0 MMOL/L (20-31); CHLORIDE LEVEL 101.0 MMOL/L (98-107); CHOLESTEROL LEVEL 223.0 MG/DL (<200); CHOLESTEROL RISK RATIO 4.06 (<5); CREATININE FOR GFR 0.81 MG/DL (0.55-1.30); FREE T4 1.07 NG/DL (0.89-1.76); GLOMERULAR FILTRATION RATE 83.6 (>51); LDL CHOLESTEROL 146.1 MG/DL (<100); NON-HDL-C 168.1 MG/DL; POTASSIUM SERUM 3.9 MMOL/L (3.5-5.1); SODIUM LEVEL 142.0 MMOL/L (136-145); TRIGLYCERIDES LEVEL 110.0 MG/DL (<150)
[2024-11-27 12:32] LABS: TOTAL 25(OH) VITAMIN D 34.2 NG/ML (20.0-100.0)
[2024-11-27 12:41] LABS: ESTIMATED AVERAGE GLUCOSE 108.0 MG/DL (60-110)
== END ==
LOC: M SFHCCLAY 07:55
PROVIDERS: ATTEND Nurse Practitioner Family
DX: R07.81 Pleurodynia (principal); R53.83 Other fatigue; R79.89 Other specified abnormal findings of blood chemistry; E55.9 Vitamin D deficiency, unspecified; E66.9 Obesity, unspecified; Z68.33 Body mass index [BMI] 33.0-33.9, adult; M25.50 Pain in unspecified joint

== ENCOUNTER → 2024-12-11 | Outpatient (CLI) | payer MEDICAID | LOC: M ONCR 09:01 | PROVIDERS: ATTEND General Practice | DX: C50.411 Malignant neoplasm of upper-outer quadrant of right female breast (principal); Z79.811 Long term (current) use of aromatase inhibitors; Z79.899 Other long term (current) drug therapy ==

== ENCOUNTER → 2025-01-11 | Outpatient (CLI) | payer MEDICAID | LOC: M SOG 13:39 | PROVIDERS: ATTEND Orthopaedic Surgery Hand Surgery | DX: M19.041 Primary osteoarthritis, right hand (principal); M79.644 Pain in right finger(s) ==